=== PATIENT | male | born 1950 | race Caucasian/White ===

== ENCOUNTER 2017-02-10 20:46 | Emergency (ER) | payer MEDICARE, OTHER ==
--- NOTE | 2017-02-13 13:14 | ER ---
ADMIT: 02/10/2017 RM/LOC: ER [facility] MR#: [id number] [address] [id number] ROXANA ARNETT [address] [place] [address] Emergency Room Report SEX: M AGE: 66 : 1950 DATE: 02/10/2017 HISTORY OF PRESENT ILLNESS: The patient is a 66-year-old male with a past medical history of diabetes and hypertension, came to the ER with chief complaint of ground level fall, allegedly patient consumed alcohol and tripped and fell on the back and hit the back of the head on the left side on the ground. The patient denies any loss of consciousness and denies using any blood thinners. The patient was ambulating after the incident and complains of mild pain in place of the laceration on the back of the head. The patient denies any chest pain, shortness of breath, headaches, visual changes, abdominal pain, or pain in extremities. PHYSICAL EXAMINATION: The patient was mildly tachycardic with a heart rate of 106, was afebrile with stable blood pressure. The patient had ETOH smell. In the head and neck, pupils are 3 mm, reactive to light bilaterally with normal extraocular movement, there is 1 inch laceration on the left posterior parietal area with 1/2 x 1/2 inch hematoma underneath, I did not see any involvement of the galea, I did not also feel any depressed bone fracture and rest of the spine has no midline tenderness or step-offs. The patient had normal range of motion. CHEST: Clear bilaterally. Normal heart sounds. ABDOMEN: Soft. Pelvic is stable. EXTREMITIES: Normal range of motion without any signs of trauma. The patient has no hemotympanum, Hernandez sign, or raccoon eyes. IMAGING: CT of the head was negative for any acute changes except for the hematoma on the left parietal area. The wound was irrigated, was stapled successfully, the patient was discharged to home with return precautions, advised on return for removal of jessi in seven days and wound care handout and advised on cutting or stopping alcohol abuse under the supervision of the primary doctor per their discretions. The patient is stable to be discharged to home. The patient tolerated p.o., ambulated without difficulty and was discharged to home. Dirk Sanders MD/ corina JOB #: [id number] CC: Dirk Sanders MD, Attending Physician Fabricio Isaac MD, Family Physician
== END 2017-02-10 22:45 | disposition home or self-care (01) ==
LOC: ER 20:46
PROC: 0HQ0XZZ Repair Scalp Skin, External Approach (ICD-10-PCS; principal; 2017-02-10)
DX: S01.01XA Laceration without foreign body of scalp, initial encounter (principal); F10.129 Alcohol abuse with intoxication, unspecified; I10 Essential (primary) hypertension; E11.9 Type 2 diabetes mellitus without complications; F17.210 Nicotine dependence, cigarettes, uncomplicated; Z23 Encounter for immunization; W01.10XA Fall on same level from slipping, tripping and stumbling with subsequent striking against unspecified object, initial encounter